=== PATIENT | female | born 1980 | race Caucasian/White ===

== ENCOUNTER 2017-01-13 13:11 | Emergency (ER) | payer MEDICAID, OTHER ==
[~2017-01-13] VITALS: Ht 157.5 cm; Wt 58.0 kg
[2017-01-13 13:15] VITALS: Ht 157.5 cm; Wt 58.0 kg
[2017-01-13] MEDS ORDERED: ONDANSETRON 4 MG INJ IV STA (14:58)
[2017-01-13] MEDS ORDERED: SOD CHLORIDE 0.9% 1,000 ML IV STA (14:58)
[2017-01-13] MEDS ORDERED: DIPHENHYDRAMINE 50 MG INJ IV ONE (15:00)
[2017-01-13] MEDS ORDERED: FAMOTIDINE 20 MG INJ IV ONE (15:00)
--- NOTE | 2017-01-13 15:04 | ERD ---
ER Documentation Chief Complaint Date/Time DATE: 01/13/17 TIME: 15:00 Chief Complaint anxiety , lot pressure at work said HPI 36-year-old female with a history of gastritis, anxiety comes emergency department with a "panic attack". 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 She reports that she was hyperventilating, and she felt like her hands went numb and her coworkers had to catch her because she felt like she was going to fall. She was driven here states that now that she is feeling a bit better however reports that the same thing happened 6 months ago where she was admitted to the hospital due to hypokalemia. She states that her potassium was 2.6 and she was observed in the hospital, and was associated with nausea vomiting. Patient reports that she did have 2 episodes of nonbloody nonbilious emesis prior to arrival. Otherwise not having any chest pain, shortness of breath, dizziness at this time. She denies SI or HI. Urine was positive here, she states now that she had a D&C 4 days ago, she reports that she was in her first trimester, and she had a gestational sac but reports that the gestational sac did not pass on its own and therefore needed a D&C. She was given a Depakote shot following the procedure, and she shows a card where she got the Doppler shot and she is due for one in 3 months. ROS All systems reviewed and are negative except as per history of present illness. Medications Home Meds Active Scripts Hydroxyzine Hcl* (Atarax*) 25 Mg Tab, 25 MG PO Q6H Y for ANXIETY, #12 TAB Prov:LETI MTZ PA-C 01/13/17 Cephalexin* (Keflex*) 500 Mg Capsule, 500 MG PO TID for 7 Days, CAP Prov:LETI MTZ PA-C 01/13/17 Allergies Allergies: Coded Allergies: metoclopramide (Verified Allergy, Unknown, 01/13/17) prochlorperazine (Verified Allergy, Unknown, 01/13/17) PMhx/Soc History of Surgery: Yes (D&C) Hx Psychiatric Problems: Yes (anxiety, gastritis ) Hx Alcohol Use: Yes (occasionally ) Hx Substance Use: No Hx Tobacco Use: No Physical Exam Vitals Vital Signs Date Time Temp Pulse Resp B/P Pulse Ox O2 Delivery O2 Flow Rate FiO2 01/13/17 13:15 98.1 73 18 113/73 99 Physical Exam General: Well-developed, well-nourished. The patient appears in no acute distress. HEENT: Head is normocephalic, atraumatic. No scleral icterus. Neck: Supple. Nontender. Lungs: Clear to auscultation. Normal air movement. Heart: Regular rate and rhythm. S1 and S2 are normal. No murmurs, gallops, or rubs. Abdomen: Soft, nontender, nondistended. Bowel sounds are normoactive. Extremities: No clubbing or cyanosis. Normal pulses. Moving extremities x 4. No weakness. Neurologic: Alert and oriented 3. No focal deficits. Skin: Normal turgor. No rash or lesions. Psych: Mildly anxious Result Diagram: 01/13/17 1515 01/13/17 1515 Results 24 hrs Laboratory Tests Test 01/13/17 15:15 White Blood Count 7.910^3/ul Red Blood Count 4.2510^6/ul Hemoglobin 13.5g/dl Hematocrit 37.9% Mean Corpuscular Volume 89.2fl Mean Corpuscular Hemoglobin 31.8pg Mean Corpuscular Hemoglobin Concent 35.6g/dl Red Cell Distribution Width 12.6% Platelet Count 86084^3/UL Mean Platelet Volume 10.9fl Neutrophils % 48.0% Lymphocytes % 43.0% Monocytes % 7.0% Eosinophils % 1.3% Basophils % 0.3% Nucleated Red Blood Cells % 0.0/100WBC Neutrophils # 3.810^3/ul Lymphocytes # 3.410^3/ul Monocytes # 0.610^3/ul Eosinophils # 0.110^3/ul Basophils # 0.010^3/ul Nucleated Red Blood Cells # 0.010^3/ul Urine Color KHADIJAH Urine Clarity CLOUDY Urine pH 8.0 Urine Specific [place] 1.020 Urine Ketones NEGATIVEmg/dL Urine Nitrite NEGATIVEmg/dL Urine Bilirubin NEGATIVEmg/dL Urine Urobilinogen NEGATIVEmg/dL Urine Leukocyte Esterase 1+Melina/ul Urine Microscopic RBC 3/HPF Urine Microscopic WBC 10/HPF Urine Squamous Epithelial Cells MANY/HPF Urine Bacteria FEW/HPF Urine Mucus FEW/HPF Urine Hemoglobin NEGATIVEmg/dL Urine Glucose NEGATIVEmg/dL Urine Total Protein 1+mg/dl Sodium Level 138mmol/L Potassium Level 4.2mmol/L Chloride Level 94mmol/L Carbon Dioxide Level 29mmol/L Anion Gap 19 Blood Urea Nitrogen 16mg/dl Creatinine 0.74mg/dl Glucose Level 98mg/dl Calcium Level 10.0mg/dl Current Medications Medications (Trade) Dose Ordered Sig/Mello Route PRN Reason Start Time Stop Time Status Last Admin Dose Admin Sodium Chloride (NS) 1,000 ml @ 1,000 mls/hr Q1H STAT IV 01/13/17 14:58 01/13/17 15:57 01/13/17 15:23 Ondansetron HCl (Zofran Inj) 4 mg ONCE STAT IV 01/13/17 14:58 01/13/17 15:00 DC 01/13/17 15:23 Famotidine (Pepcid Iv) 20 mg ONCE ONCE IV 01/13/17 15:00 01/13/17 15:01 DC 01/13/17 15:23 Diphenhydramine HCl (Benadryl) 25 mg ONCE ONCE IV 01/13/17 15:00 01/13/17 15:01 DC 01/13/17 15:23 12-lead EKG(interpreted by supervising physician): Dr. Ayala Rate/Rhythm: Normal Sinus Rhythm, rate of 71 QRS, ST, T-waves: No changes consistent w/ acute ischemia, no intervals, no dysrhythmias, no ectopy Impression: No evidence of ischemia or arrhythmia Procedures/MDM ED course: Patient was given IV fluids, normal saline 1 L, Benadryl 25 mg IV, Pepcid 25 mg IV Zofran 4 mg IV. Medical decision making: This is a 36-year-old female comes in with acute anxiety problem, and UTI. She was treated with Benadryl, Pepcid and Zofran and fluids and was feeling much better. She reports that previously her potassium was low, labs are unremarkable. She is no hypokalemia, chloride is low, she was treated with fluids, secondary to likely mild dehydration. Otherwise her workup is unremarkable. She was observed in the emergency department, was feeling much better and stable for discharge. I doubt pulmonary embolus, dissection, acute coronary syndrome. Departure Diagnosis: Primary Impression: UTI (urinary tract infection) Additional Impression: Anxiety Condition: LETI Carter PA-C Jan 13, 2017 15:04
[2017-01-13 15:21] LABS: ADD SCAN DIFF NO
[2017-01-13 15:26] LABS: BASOPHILS % 0.3 % (0.0-2.0); EOSINOPHILS # 0.1 10^3/ul (0.0-0.5); EOSINOPHILS % 1.3 % (0.0-7.0); HEMATOCRIT 37.9 % (37.0-47.0); HEMOGLOBIN 13.5 g/dl (12.0-16.0); LYMPHOCYTES # 3.4 10^3/ul (0.8-2.9); MEAN CORPUSCULAR HEMOGLOBIN 31.8 pg (29.0-33.0); MEAN CORPUSCULAR HGB CONC 35.6 g/dl (32.0-37.0); MEAN CORPUSCULAR VOLUME 89.2 fl (82.0-101.0); MEAN PLATELET VOLUME 10.9 fl (7.4-10.4); MONOCYTE # 0.6 10^3/ul (0.3-0.9); NEUTROPHIL # 3.8 10^3/ul (1.6-7.5); PLATELET COUNT 261 10^3/UL (140-415); RED BLOOD COUNT 4.25 10^6/ul (4.20-5.40); RED CELL DISTRIBUTION WIDTH 12.6 % (11.5-14.5); WHITE BLOOD COUNT 7.9 10^3/ul (4.8-10.8)
[2017-01-13 15:43] LABS: ADD UMIC YES; CREATININE 0.74 mg/dl (0.44-1.00); POTASSIUM 4.2 mmol/L (3.5-5.1); UR ASCORBIC ACID 40 mg/dL (NEGATIVE); UR BACTERIA FEW /HPF (NONE SEEN); UR BILIRUBIN (Dip) NEGATIVE (NEGATIVE); UR BLOOD (Dip) NEGATIVE (NEGATIVE); UR CLARITY CLOUDY (CLEAR); UR COLOR AMBER (YELLOW); UR GLUCOSE (Dip) NEGATIVE (NEGATIVE); UR KETONES (Dip) NEGATIVE (NEGATIVE); UR LEUKOCYTE ESTERASE (Dip) 1+ Leu/ul (NEGATIVE); UR MUCUS FEW /HPF (NONE SEEN); UR NITRITE (Dip) NEGATIVE (NEGATIVE); UR RBC 3 /HPF (0-5); UR SQUAMOUS EPITHELIAL CELL MANY /HPF (FEW); UR TOTAL PROTEIN (Dip) 1+ mg/dl (NEGATIVE); UR UROBILINOGEN (Dip) NEGATIVE (NEGATIVE)
[2017-01-13] MEDS ORDERED: CEPH-443 PO (15:51)
[2017-01-13] MEDS ORDERED: HYDR-842 PO (15:51)
[2017-01-13 16:21] VITALS: BP 96/58; PULSE 71; RESP 16; TEMP 98.2
== END 2017-01-13 16:23 | disposition home or self-care (01) ==
LOC: FTE 13:11
DX: N39.0 Urinary tract infection, site not specified (principal)
CPT/HCPCS: 36415; 80048; 81001; 85025; 93005; 96374; 96375; J1200; J2405; J7030; Z7502; Z7610

== ENCOUNTER → 2017-03-17 | Outpatient (CLI) | END | disposition home or self-care (01) | DX: Z30.2 Encounter for sterilization (principal) ==

== ENCOUNTER 2017-05-01 11:25 | Emergency (ER) | payer MEDICAID ==
[~2017-05-01] VITALS: Ht 167.6 cm; Wt 55.0 kg
[~2017-05-01 11:25] MED LIST: CEPH-443 PO; HYDR-842 PO
[2017-05-01 11:37] VITALS: Ht 167.6 cm; Wt 55.0 kg
[2017-05-01] MEDS ORDERED: ONDANSETRON 4 MG INJ IV STA ×4 (14:10→17:09)
[2017-05-01] MEDS ORDERED: morphine 4 MG/ML VIAL IV STA ×2 (14:10→16:14)
[2017-05-01] MEDS ORDERED: SOD CHLORIDE 0.9% 1,000 ML IV STA (14:10)
[2017-05-01 14:39] LABS: BASOPHILS % 0.3 % (0.0-2.0); EOSINOPHILS # 0.1 10^3/ul (0.0-0.5); EOSINOPHILS % 1.7 % (0.0-7.0); HEMOGLOBIN 13.3 g/dl (12.0-16.0); LYMPHOCYTES # 2.3 10^3/ul (0.8-2.9); LYMPHOCYTES % 39.4 % (15.0-51.0); MEAN CORPUSCULAR HEMOGLOBIN 32.8 pg (29.0-33.0); MEAN CORPUSCULAR HGB CONC 34.1 g/dl (32.0-37.0); MEAN CORPUSCULAR VOLUME 96.1 fl (82.0-101.0); MONOCYTE # 0.4 10^3/ul (0.3-0.9); MONOCYTES % 6.3 % (0.0-11.0); NEUTROPHIL # 3.1 10^3/ul (1.6-7.5); NEUTROPHILS % 52.1 % (39.0-77.0); PLATELET COUNT 243 10^3/UL (140-415); RED BLOOD COUNT 4.06 10^6/ul (4.20-5.40); RED CELL DISTRIBUTION WIDTH 12.2 % (11.5-14.5); WHITE BLOOD COUNT 5.9 10^3/ul (4.8-10.8)
--- NOTE | 2017-05-01 14:40 | ERD ---
ER Documentation Chief Complaint Chief Complaint vomiting x 9 days, seen at [facility] left yesterday (TODD MARTINI PA-C) HPI 37-year-old female with a history of gastritis, cholecystectomy and benign pelvic mass, presents emergency department for complaints of nausea, vomiting, abdominal pain 9 days. Patient was seen and admitted to [facility] 3 days ago for dehydration and UTI but left AMA as she states she was never seen by a physician while inpatient. Patient currently complains of epigastric as well as bilateral lower abdominal pain, darkened urine, dysuria, and nausea. She rates her pain at rest as a 2 or 3 but states the pain worsens upon vomiting or movement. She states she has vomited approximately 3-4 times per day and is unable to keep down solid foods or liquids. She has attempted to treat her symptoms with Zofran at home with only temporary relief. She states she has experienced similar symptoms in the past related to her gastritis but which have resolved over 2-3 days. She states she is concerned as the symptoms have prolonged for 9 days. She states she underwent a cholecystectomy 5 years ago as well as an exploratory surgery in regards to a pelvic mass which was biopsied and benign. She denies any vaginal discharge or rash. She denies any diarrhea, headache, shortness of breath or chest pain. (TODD MARTINI PA-C) ROS All systems reviewed and are negative except as per history of present illness. (TODD MARTINI PA-C) Medications Home Meds Active Scripts Omeprazole* (Omeprazole*) 20 Mg Capsule.dr, 20 MG PO DAILY, #30 CAP Prov:TODD MARTINI PA-C 05/01/17 Dicyclomine Hcl* (Bentyl*) 10 Mg Capsule, 10 MG PO QID for 14 Days, CAP Prov:TODD MARTINI PA-C 05/01/17 Famotidine* (Pepcid*) 20 Mg Tablet, 20 MG PO BID for 14 Days, TAB Prov:TODD MARTINI PA-C 05/01/17 Electrolyte,Oral (Pedialyte) 1,000 Ml Solution, 100 ML PO Q6 Y for VOMITTING for 7 Days, ML Prov:TODD MARTINI PA-C 05/01/17 Ondansetron (Ondansetron Odt) 4 Mg Tab.rapdis, 4 MG PO Q6H Y for NAUSEA AND/OR VOMITING, #30 TAB Prov:TODD MARTINI PA-C 05/01/17 Hydroxyzine Hcl* (Atarax*) 25 Mg Tab, 25 MG PO Q6H Y for ANXIETY, #12 TAB Prov:LETI MTZ PA-C 01/13/17 Cephalexin* (Keflex*) 500 Mg Capsule, 500 MG PO TID for 7 Days, CAP Prov:LETI MTZ PA-C 01/13/17 Discontinued Scripts Naproxen* (Naprosyn*) 500 Mg Tablet, 500 MG PO BID Y for PAIN AND/OR INFLAMMATION, #30 TAB Prov:TODD MARTINI PA-C 05/01/17 Allergies Allergies: Coded Allergies: fentanyl (Verified Allergy, Intermediate, hives, 05/01/17) ketorolac (Verified Allergy, Intermediate, 05/01/17) Patient states tht she has an upset stomach its Unknown whether a true Allergy meperidine (Verified Allergy, Mild, 05/01/17) metoclopramide (Verified Allergy, Unknown, 01/13/17) prochlorperazine (Verified Allergy, Unknown, 01/13/17) PMhx/Soc History of Surgery: Yes (D&C, cholecystectomy) Hx Psychiatric Problems: Yes (anxiety, gastritis ) Hx Alcohol Use: Yes (occasionally ) Hx Substance Use: No Hx Tobacco Use: No Smoking Status: Never smoker (TODD MARTINI PA-C) Physical Exam Vitals Vital Signs Date Time Temp Pulse Resp B/P Pulse Ox O2 Delivery O2 Flow Rate FiO2 05/01/17 11:37 99.1 114 18 127/82 100 (APOLINAR JACOBS MD) Physical Exam Const: We will developed, well-nourished, in mild distress Head: Atraumatic Eyes: Normal Conjunctiva ENT: Normal External Ears, Nose and Mouth. Neck: Full range of motion..~ No meningismus. Resp: Clear to auscultation bilaterally Cardio: Regular rate and rhythm, no murmurs Abd: Soft,non distended. Normal bowel sounds, Tenderness to palpation at the right upper quadrant as well as right lower quadrant. Positive rebound tenderness. Skin: No petechiae or rashes Back: Right-sided flank tenderness to palpation. No midline tenderness Ext: No cyanosis, or edema Neur: Awake and alert Psych: Normal Mood and Affect (TODD MARTINI PA-C) Result Diagram: 05/01/17 1430 05/01/17 1810 Results 24 hrs Laboratory Tests Test 05/01/17 14:30 05/01/17 18:10 White Blood Count 5.910^3/ul Red Blood Count 4.0610^6/ul Hemoglobin 13.3g/dl Hematocrit 39.0% Mean Corpuscular Volume 96.1fl Mean Corpuscular Hemoglobin 32.8pg Mean Corpuscular Hemoglobin Concent 34.1g/dl Red Cell Distribution Width 12.2% Platelet Count 28964^3/UL Mean Platelet Volume 11.0fl Neutrophils % 52.1% Lymphocytes % 39.4% Monocytes % 6.3% Eosinophils % 1.7% Basophils % 0.3% Nucleated Red Blood Cells % 0.0/100WBC Neutrophils # 3.110^3/ul Lymphocytes # 2.310^3/ul Monocytes # 0.410^3/ul Eosinophils # 0.110^3/ul Basophils # 0.010^3/ul Nucleated Red Blood Cells # 0.010^3/ul Urine Color YELLOW Urine Clarity CLOUDY Urine pH 8.0 Urine Specific [place] 1.019 Urine Ketones NEGATIVEmg/dL Urine Nitrite NEGATIVEmg/dL Urine Bilirubin NEGATIVEmg/dL Urine Urobilinogen 1+mg/dL Urine Leukocyte Esterase TRACELeu/ul Urine Microscopic RBC 2/HPF Urine Microscopic WBC 3/HPF Urine Squamous Epithelial Cells MANY/HPF Urine Bacteria FEW/HPF Urine Mucus FEW/HPF Urine Hemoglobin NEGATIVEmg/dL Urine Glucose NEGATIVEmg/dL Urine Total Protein 1+mg/dl Sodium Level 150mmol/L 146mmol/L Potassium Level 4.0mmol/L 3.6mmol/L Chloride Level 111mmol/L 118mmol/L Carbon Dioxide Level 25mmol/L 23mmol/L Anion Gap 18 9 Blood Urea Nitrogen 5mg/dl 5mg/dl Creatinine 0.62mg/dl 0.56mg/dl Glucose Level 93mg/dl 75mg/dl Calcium Level 10.1mg/dl 7.8mg/dl Total Bilirubin 0.7mg/dl 0.4mg/dl Direct Bilirubin 0.00mg/dl 0.00mg/dl Indirect Bilirubin 0.7mg/dl 0.4mg/dl Aspartate Amino Transf (AST/SGOT) 29IU/L 19IU/L Alanine Aminotransferase (ALT/SGPT) 41IU/L 34IU/L Alkaline Phosphatase 59IU/L 41IU/L Total Protein 8.4g/dl 5.8g/dl Albumin 4.5g/dl 3.2g/dl Globulin 3.90g/dl 2.60g/dl Albumin/Globulin Ratio 1.15 1.23 Lipase 31U/L Current Medications Medications (Trade) Dose Ordered Sig/Mello Route PRN Reason Start Time Stop Time Status Last Admin Dose Admin Sodium Chloride (NS) 1,000 ml @ 1,000 mls/hr Q1H STAT IV 05/01/17 14:10 05/01/17 15:09 DC 05/01/17 14:35 Morphine Sulfate (morphine) 4 mg ONCE STAT IV 05/01/17 14:10 05/01/17 14:12 DC 05/01/17 14:35 Ondansetron HCl (Zofran Inj) 4 mg ONCE STAT IV 05/01/17 14:10 05/01/17 14:12 DC 05/01/17 14:36 Diphenhydramine HCl (Benadryl) 25 mg ONCE ONCE IV 05/01/17 15:00 05/01/17 15:01 DC 05/01/17 14:45 Ondansetron HCl (Zofran Inj) 4 mg ONCE STAT IV 05/01/17 16:14 05/01/17 16:15 DC 05/01/17 16:21 Morphine Sulfate (morphine) 4 mg ONCE STAT IV 05/01/17 16:14 05/01/17 16:15 DC Diphenhydramine HCl (Benadryl) 25 mg ONCE ONCE IV 05/01/17 16:30 05/01/17 16:31 DC Ketorolac Tromethamine (Toradol) 30 mg ONCE STAT IV 05/01/17 16:48 05/01/17 16:50 DC Ondansetron HCl (Zofran Inj) 4 mg ONCE STAT IV 05/01/17 16:48 05/01/17 16:50 DC Dicyclomine HCl 20 mg 20 mg ONCE ONCE IM 05/01/17 17:00 05/01/17 17:01 DC Sodium Chloride (NS) 1,000 ml @ 1,000 mls/hr Q1H ONCE IV 05/01/17 17:30 05/01/17 18:29 DC 05/01/17 17:30 Ondansetron HCl (Zofran Inj) 4 mg ONCE STAT IV 05/01/17 17:09 05/01/17 17:11 DUNIA (APOLINAR JACOBS MD) Procedures/MDM PROCEDURE: CT ABDOMEN AND PELVIS WITHOUT CONTRAST. CLINICAL INDICATION: Abdominal pain TECHNIQUE: CT scan of the abdomen and pelvis without contrast was performed on a multidetector high-resolution CT scanner. The patient was scanned without intravenous contrast. Coronal and sagittal reformatted images were obtained from the axial source images. Images were reviewed on a high-resolution PACS workstation. The total exam CTDI equals 4.6 mGy and the total exam DLP equals 244.7 mGy-cm. One or more of the following dose reduction techniques were used: Automated exposure control. Adjustment of the mA and/or kV according to patient size. Use of iterative reconstruction technique. COMPARISON: None FINDINGS: CT abdomen: The lung bases are clear. The heart size is within limits. There is no significant pericardial effusion. Hepatic morphology is within limits. No gross contour deforming masses. Status post cholecystectomy. The spleen and pancreas are within normal limits. The spleen and pancreas are within normal limits. Both adrenal glands are within normal limits. Both kidneys are and normal anatomic position. No gross renal/ureteric calculi. No evidence of obstruction or hydronephrosis. There is a 5 mm hyperdensity within the mid pole of the left kidney. The visualized GI tract demonstrate normal caliber loops of small and large bowel. No evidence of bowel obstruction. The appendix is within normal limits. Stool and air filled large bowel suggestive of constipation. The unenhanced aorta is unremarkable. No significant retroperitoneal lymphadenopathy. CT pelvis: The bladder is distended. Uterus unremarkable. Stool is noted within the rectosigmoid colon. No significant free fluid. No significant pelvic lymphadenopathy. The visualized osseous structures, appears to within normal limits. IMPRESSION: 1. No evidence of acute intra-abdominal/pelvic inflammatory process. No evidence of bowel obstruction. The appendix is within normal limits. 2. Constipation. 3. Status post cholecystectomy. 4. No evidence of free fluid or free air. No gross focal fluid collections. RPTAT: AAPP Physician Troy Date Time Electronically viewed and signed by Brittney Choi Physician on 05/01/2017 16:12 BHARGAVI/ CC: TODD MARTINI PA-C This is a 37-year-old female with a history of cholecystectomy and laparoscopic abdominal surgery for pelvic mass, who presents the emergency department for complaints of vomiting, dysuria, and abdominal pain 9 days. Patient was seen and admitted to [facility], however patient left AMA as she did not believe she was receiving adequate treatment. Vital signs reviewed. Patient afebrile, normotensive and not hypoxic upon arrival. Patient was tachycardic at 114 bpm. Abdominal exam with evidence of right upper and lower tenderness to palpation and right flank tenderness. CBC showed no evidence of hypernatremia which corrected after 2 liters of fluid while in the ED. CMP showed no evidence of electrolyte abnormalities, severe acidosis, alkalosis , renal failure, or liver disease. Lipase showed no evidence of acute pancreatitis. UA showed no evidence of acute infection or hematuria. Urine test was negative. CT with evidence of constipation, otherwise unremarkable. Patient received a bolus of fluids as well as Zofran and pain medication while in the emergency department. She exhibited a mild allergic reaction to Morphine and so benadryl was administered. Pt refused alternative forms of pain medication. Based on the patients appearance, physical exam, lab and imaging results, this patient does not meet admission criteria. Dr Zohra Lee accompanied me to the bedside multiple times speak with and examine the patient. She agreed with plan for discharge with follow up to GI. Resources were provided. While explaining results and plan to the patient, she interrupted and demanded to have her IV taken out. I recommended Zofran, fluids, stool softener, and acid reflux medication. Based on patient's history of present illness and physical examination the decision was made to discharge. The patient was re-evaluated after ED treatment and stabilizing measures, and symptoms have improved. There is no evidence of life threatening injuries or illnesses at this time. On re-examination, patient resting in no distress, stable vital signs, reports feeling better and safe for discharge with outpatient follow up with PMD in 1-2 days. Patient given return precautions. (TODD MARTINI PA-C) Departure Diagnosis: Primary Impression: Vomiting Vomiting type: unspecified Vomiting Intractability: non-intractable Nausea presence: with nausea Qualified Code: R11.2 - Non-intractable vomiting with nausea, unspecified vomiting type Additional Impressions: Abdominal pain Abdominal location: generalized Qualified Code: R10.84 - Generalized abdominal pain Constipation Constipation type: unspecified constipation type Qualified Code: K59.00 - Constipation, unspecified constipation type Assessment Additional comments: Patient seen and examined with provider. Labs reviewed and discussed with patient. I agree with plan and disposition. (APOLINAR JACOBS MD) TODD MARTINI PA-C May 01, 2017 14:40 APOLINAR JACOBS MD May 02, 2017 08:31
[2017-05-01 14:44] LABS: ADD UMIC YES; UR ASCORBIC ACID NEGATIVE (NEGATIVE); UR BACTERIA FEW /HPF (NONE SEEN); UR BILIRUBIN (Dip) NEGATIVE (NEGATIVE); UR BLOOD (Dip) NEGATIVE (NEGATIVE); UR CLARITY CLOUDY (CLEAR); UR COLOR YELLOW (YELLOW); UR GLUCOSE (Dip) NEGATIVE (NEGATIVE); UR KETONES (Dip) NEGATIVE (NEGATIVE); UR LEUKOCYTE ESTERASE (Dip) TRACE Leu/ul (NEGATIVE); UR MUCUS FEW /HPF (NONE SEEN); UR NITRITE (Dip) NEGATIVE (NEGATIVE); UR RBC 2 /HPF (0-5); UR SPECIFIC GRAVITY (Dip) 1.019 (1.003-1.030); UR SQUAMOUS EPITHELIAL CELL MANY /HPF (FEW); UR TOTAL PROTEIN (Dip) 1+ mg/dl (NEGATIVE); UR UROBILINOGEN (Dip) 1+ mg/dL (NEGATIVE)
[2017-05-01 14:57] LABS: ALBUMIN 4.5 g/dl (3.3-4.9); ALBUMIN/GLOBULIN RATIO 1.15; BILIRUBIN,INDIRECT 0.7 mg/dl (0-1.1); BILIRUBIN,TOTAL 0.7 mg/dl (0.2-1.3); CALCIUM 10.1 mg/dl (8.4-10.2); CREATININE 0.62 mg/dl (0.44-1.00); TOTAL PROTEIN 8.4 g/dl (6.1-8.1)
[2017-05-01] MEDS ORDERED: DIPHENHYDRAMINE 50 MG INJ IV ONE ×2 (15:00→16:30)
--- NOTE | 2017-05-01 16:12 | RADRPT ---
PROCEDURE: CT ABDOMEN AND PELVIS WITHOUT CONTRAST. CLINICAL INDICATION: Abdominal pain TECHNIQUE: CT scan of the abdomen and pelvis without contrast was performed on a multidetector hig h-resolution CT scanner. The patient was scanned without intravenous contrast. Coronal and sagittal reformatted images were obtained from the axial source images. Images were reviewed on a high-resol [employer] PACS workstation. The total exam CTDI equals 4.6 mGy and the total exam DLP equals 244.7 mGy-c m. One or more of the following dose reduction techniques were used: Automated exposure control. Adjustment of the mA and/or kV according to patient size. Use of iterative reconstruction technique. COMPARISON: None FINDINGS: CT abdomen: The lung bases are clear. The heart size is within limits. There is no significant pericardial effus ion. Hepatic morphology is within limits. No gross contour deforming masses. Status post cholecystectomy. The spleen and pancreas are within normal limits. The spleen and pancreas are within normal limits. Both adrenal glands are within normal limits. Both kidneys are and normal anatomic position. No gross renal/ureteric calculi. No evidence of obstr uction or hydronephrosis. There is a 5 mm hyperdensity within the mid pole of the left kidney. The visualized GI tract demonstrate normal caliber loops of small and large bowel. No evidence of lubna wel obstruction. The appendix is within normal limits. Stool and air filled large bowel suggestive o f constipation. The unenhanced aorta is unremarkable. No significant retroperitoneal lymphadenopathy. CT pelvis: The bladder is distended. Uterus unremarkable. Stool is noted within the rectosigmoid colon. No sign ificant free fluid. No significant pelvic lymphadenopathy. The visualized osseous structures, appears to within normal limits. IMPRESSION: 1. No evidence of acute intra-abdominal/pelvic inflammatory process. No evidence of bowel obstructio n. The appendix is within normal limits. 2. Constipation. 3. Status post cholecystectomy. 4. No evidence of free fluid or free air. No gross focal fluid collections. RPTAT: AAPP Physician Troy Date Time Electronically viewed and signed by Physician Troy on 05/01/2017 16:12 JL/
[2017-05-01] MEDS ORDERED: KETOROLAC 30 MG INJ IV STA (16:48)
[2017-05-01] MEDS ORDERED: DICYCLOMINE 20 MG INJ IM ONE (17:00)
[2017-05-01] MEDS ORDERED: SOD CHLORIDE 0.9% 1,000 ML IV ONE (17:30)
[2017-05-01 18:55] LABS: ALBUMIN 3.2 g/dl (3.3-4.9); ALBUMIN/GLOBULIN RATIO 1.23; BILIRUBIN,INDIRECT 0.4 mg/dl (0-1.1); BILIRUBIN,TOTAL 0.4 mg/dl (0.2-1.3); CALCIUM 7.8 mg/dl (8.4-10.2); CREATININE 0.56 mg/dl (0.44-1.00); POTASSIUM 3.6 mmol/L (3.5-5.1); TOTAL PROTEIN 5.8 g/dl (6.1-8.1)
[2017-05-01] MEDS ORDERED: NAPR-260 PO (18:56)
[2017-05-01] MEDS ORDERED: DICY10CA60 PO (19:10)
[2017-05-01] MEDS ORDERED: ONDA4TAB14 PO (19:10)
[2017-05-01] MEDS ORDERED: FAMO-96 PO (19:10)
[2017-05-01] MEDS ORDERED: ELEC100080 PO (19:10)
[2017-05-01] MEDS ORDERED: OMEP20CA16 PO (19:10)
== END 2017-05-01 19:13 | disposition home or self-care (01) ==
LOC: FTE 11:25
DX: R11.2 Nausea with vomiting, unspecified (principal); K59.00 Constipation, unspecified
CPT/HCPCS: 36415; 74176; 80053; 81001; 83690; 85025; 96374; 96375; 96376; J1200; J2270; J2405; J7030; Z7502; J0500